=== PATIENT | male | born 2000 | race Hispanic/Latino ===

== ENCOUNTER 2023-11-25 19:16 | Inpatient (IN) | payer BC ==
[2023-11-25 20:02] LABS: #Basophils 0.1 10x3/uL (0.0-0.2); #Eosinphils 0.1 10x3/uL (0.0-0.5); #Neutrophils 7.2 10x3/uL (1.5-8.4); %Basophils 0.5 % (0.0-2.0); %Eosinophils 0.9 % (0.0-6.0); %Lymphocytes 16.7 % (18.0-47.0); %Neutrophils 71.6 % (40.0-75.0); Hemoglobin 16.8 g/dL (13.5-17.5); Mean Corpuscular HGB CONC 34.3 g/dL (32.0-36.0); Mean Corpuscular Hemoglobin 29.1 pg (27.0-33.0); Mean Corpuscular Volume 84.8 fl (81.2-95.1); Mean Platelet Volume 9.6 fl (7.4-10.4); Platelet Count 355 10x3/uL (150-450); RBC Distribution Width 12.4 % (11.5-14.5); Red Blood Cell (RBC) Count 5.78 10x6/uL (4.32-5.72)
[2023-11-25] MEDS ORDERED: Ondansetron PF 4 MG/2 ML Vial ONE (20:02)
[2023-11-25 20:13] LABS: Phosphorus 3.4 mg/dL (2.3-4.7)
[2023-11-25 20:15] LABS: ALT (SGPT) 291 U/L (8-55); AST (SGOT) 124 U/L (5-34); Albumin 4.8 g/dL (3.5-5.0); Alkaline Phosphatase 166 U/L (40-110); Anion Gap 20 mmol/L (10-20); BUN (Urea Nitrogen) 17 mg/dL (8.9-20.6); Calc. Creatinine Clearance 0 mL/min (70-130); Calcium 9.3 mg/dL (7.8-10.44); Carbon Dioxide 14 mmol/L (22-29); Chloride 97 mmol/L (98-107); Estimated GFR 78; Globulin 3.7 g/dL (2.4-3.5); Lipase 15 U/L (8-78); Magnesium 1.9 mg/dL (1.6-2.6); Potassium 4.3 mmol/L (3.5-5.1); Protein, Total 8.5 g/dL (6.0-8.3); Sodium 127 mmol/L (136-145)
[2023-11-25 20:17] LABS: Glucose 514 mg/dL (70-105)
[2023-11-25] MEDS ORDERED: Insulin Regular 300 UNITS/3 ML VIAL ONE (21:14)
[2023-11-25] MEDS ORDERED: INSULIN REGULAR IN 0.9 % NACL 100 UNITS/100 ML BAG ONE (21:14)
[2023-11-25 21:16] LABS: Actual Bicarbonate (HCO3v) 16.3 mEq/L (22-28); Analyzer IN Cardio CS ER; Base Excess -10.5 mEq/L (-2 - +2); Calcium, Ionized (venous) 1.21 mmol/L (1.16-1.32); Chloride (VBG) 95 mmol/L (98-106); Critical Notified By: CP.PH; Hematocrit-VBG 53 % (42.0-52.0); Hemoglobin (Hb) 18.1 g/dL (13.2-17.3); Potassium (VBG) 4.16 mmol/L (3.70-5.30); Puncture Site Other Site; Sodium 134 mmol/L (133-146); pH (venous) 7.233 (7.32-7.43)
[2023-11-25] MEDS ORDERED: NS 0.9% w/ 20 MEQ KCL 0 ML ONE (21:46)
[2023-11-25] MEDS ORDERED: NS 0.9% w/ 20 MEQ KCL 1,000 ML ONE (21:48)
[2023-11-25] MEDS ORDERED: Senokot S 8.6-50 MG TAB PO PRN (22:00)
[2023-11-25] MEDS ORDERED: Dextrose 50% Abboject 50 ML SYRINGE SLOW IVP PRN (22:00)
[2023-11-25] MEDS ORDERED: Ondansetron PF 4 MG/2 ML Vial IVP PRN (22:00)
[2023-11-25] MEDS ORDERED: Calcium Carbonate 500 MG ChewTAB PO PRN (22:00)
[2023-11-25] MEDS ORDERED: Electrolyte Replacement Protocol IVPB SCH (22:00)
[2023-11-25 22:10] LABS: Bilirubin Neg (Negative); Blood, Urine 25 (Negative); Clarity Clear (Clear); Glucose, Urine (Dipstick) >=1000 mg/dL (Negative); Ketone, Urine 150 mg/dL (Negative); Leukocyte Negative (Negative); Nitrite Negative (Negative); Protein, Urine (Dipstick) 15 mg/dl (Neg-Trace); Specific Gravity, Urine 1.025 (1.005-1.030); Urobilinogen Normal mg/dL (Less than 2)
[2023-11-25] MEDS ORDERED: Dextrose 5 %-0.45 % NaCl 1,000 ML IV SCH (22:15)
[2023-11-25 22:22] LABS: Bacteria/HPF None Seen HPF (None Seen); CAUTI Indications for Culture Pelvic or flank pain; RBC/HPF 0-3 HPF (0-3); Squamous Epithelial 0-3 HPF (0-3); Urine Culture Reflex No No; WBC/HPF None Seen HPF (0-3)
[2023-11-26] MEDS ORDERED: Dextrose 5% in Water 1,000 ML IV PRN ×2 (00:30→05:40)
[2023-11-26] MEDS ORDERED: Glucagon 1 MG/ML KIT IM PRN ×2 (00:30→05:40)
[2023-11-26] MEDS ORDERED: Dextrose 5 %-0.45 % NaCl 1,000 ML IV PRN (00:30)
[2023-11-26] MEDS ORDERED: Dextrose 50% Abboject 50 ML SYRINGE SLOW IVP PRN ×2 (00:30→05:40)
[2023-11-26] MEDS ORDERED: NS 0.9% w/ 20 MEQ KCL 1,000 ML/1,000 ML BAG IV PRN ×2 (00:30)
[2023-11-26] MEDS ORDERED: Sodium Chloride 0.9% 1,000 ML IV PRN ×4 (00:30)
[2023-11-26] MEDS ORDERED: D5 1/2 NS w/20 mEq KCL 1,000 ML IV PRN (00:30)
[2023-11-26] MEDS: INSULIN REGULAR IN 0.9 % NACL 100 UNITS in Premix 1 BAG IVPB SCH (00:40)
[2023-11-26] MEDS: Magnesium 2 GM/50 ML(in water) 2 GM in Premix 1 BAG IVPB SCH (00:41)
[2023-11-26] MEDS: Potassium Chloride 20 MEQ in Lactated Ringer's 1,000 ML IV SCH ×2 (01:35→06:23)
[2023-11-26 02:49] LABS: Anion Gap 15 mmol/L (10-20); BUN (Urea Nitrogen) 13 mg/dL (8.9-20.6); Calc. Creatinine Clearance 199 mL/min (70-130); Calcium 8.7 mg/dL (7.8-10.44); Carbon Dioxide 18 mmol/L (22-29); Cardiac Risk 7.9 (Less than 4.5); Chloride 103 mmol/L (98-107); Estimated GFR 111; Glucose 285 mg/dL (70-105); Magnesium 2.1 mg/dL (1.6-2.6); Phosphorus 2.5 mg/dL (2.3-4.7); Potassium 3.4 mmol/L (3.5-5.1); Sodium 133 mmol/L (136-145)
[2023-11-26] MEDS: Potassium Chloride 20 MEQ TAB PO SCH ×2 (04:15→06:17)
[2023-11-26] MEDS: Acetaminophen 325 MG TAB PO PRN (04:52)
[2023-11-26 05:34] LABS: Magnesium 2.1 mg/dL (1.6-2.6); Phosphorus 2.8 mg/dL (2.3-4.7)
[2023-11-26 05:35] LABS: ALT (SGPT) 200 U/L (8-55); AST (SGOT) 64 U/L (5-34); Alkaline Phosphatase 135 U/L (40-110); Anion Gap 13 mmol/L (10-20); BUN (Urea Nitrogen) 13 mg/dL (8.9-20.6); Bilirubin, Total 0.6 mg/dL (0.2-1.2); Calc. Creatinine Clearance 205 mL/min (70-130); Calcium 8.8 mg/dL (7.8-10.44); Carbon Dioxide 21 mmol/L (22-29); Chloride 105 mmol/L (98-107); Estimated GFR 115; Globulin 3.3 g/dL (2.4-3.5); Glucose 169 mg/dL (70-105); Potassium 3.4 mmol/L (3.5-5.1); Protein, Total 7.3 g/dL (6.0-8.3); Sodium 136 mmol/L (136-145)
[2023-11-26] MEDS: Lantus 1000 UNITS/10 ML VIAL SC SCH ×2 (06:17→21:12)
[2023-11-26] MEDS: Enoxaparin 40 MG (0.4 mL) SYRINGE SC SCH (08:49)
[2023-11-26] MEDS: Famotidine 20 MG TAB PO SCH (08:49)
[2023-11-26] MEDS: Folic Acid 1 MG TAB PO SCH (08:49)
[2023-11-26] MEDS: Thiamine 100 MG TAB PO SCH (08:49)
[2023-11-26] MEDS: HumaLOG 300 UNITS/3 ML VIAL SC PRN ×2 (12:00→16:29)
[2023-11-26 12:29] LABS: Anion Gap 16 mmol/L (10-20); BUN (Urea Nitrogen) 13 mg/dL (8.9-20.6); Calc. Creatinine Clearance 174 mL/min (70-130); Calcium 8.9 mg/dL (7.8-10.44); Carbon Dioxide 21 mmol/L (22-29); Chloride 104 mmol/L (98-107); Estimated GFR 94; Glucose 314 mg/dL (70-105); Potassium 4.6 mmol/L (3.5-5.1); Sodium 136 mmol/L (136-145)
[2023-11-26 13:15] LABS: Hemoglobin A1c 9.5 % (4.0-6.0)
[2023-11-26 13:17] LABS: HBCM Index 0.07 S/CO (0-0.79); HBSAg Index 0.29 S/CO (0-0.99); Hep A IgM AB Non-Reactive (NonReactive); Hep A IgM S/CO 0.15 S/CO (0-0.79); Hep B Surf Ag Non-Reactive S/CO (NonReactive); Hep C IgG Ab Non-Reactive S/CO (NonReactive); Hep C Index 0.11 S/CO (0-0.79); Hepatitis B Core IgM Abs Non-Reactive S/CO (NonReactive)
[2023-11-26] MEDS: Potassium Chloride 20 MEQ in Premix 1 BAG IVPB SCH (14:40)
[2023-11-27 04:02] LABS: Anion Gap 15 mmol/L (10-20); BUN (Urea Nitrogen) 11 mg/dL (8.9-20.6); Calc. Creatinine Clearance 224 mL/min (70-130); Calcium 9.8 mg/dL (7.8-10.44); Carbon Dioxide 22 mmol/L (22-29); Chloride 101 mmol/L (98-107); Estimated GFR 124; Glucose 238 mg/dL (70-105); Potassium 3.6 mmol/L (3.5-5.1); Sodium 134 mmol/L (136-145)
[2023-11-27 05:17] VITALS: BMI 35.4
[2023-11-27] MEDS: Lantus 1000 UNITS/10 ML VIAL SC SCH (22:03)
[2023-11-28] MEDS: metFORMIN 500 MG TAB PO SCH ×2 (09:22→15:56)
[2023-11-28] MEDS: Lisinopril 2.5 MG TAB PO SCH (10:17)
[2023-11-28] MEDS: Insulin Regular 300 UNITS/3 ML VIAL SC PRN (16:07)
[2023-11-28 16:27] VITALS: BP 140/76; TEMP 98.1
[2023-11-28] MEDS ORDERED: Lantus 1000 UNITS/10 ML VIAL SC SCH ×2 (21:00)
[2023-11-29] MEDS ORDERED: Lisinopril 2.5 MG TAB PO SCH (09:00)
== END 2023-11-28 17:19 | disposition home or self-care (01) | DRG 638 ==
LOC: CSHERS 19:16 → CSHICU 22:11 → CSHTELE 11-27 00:34
PROVIDERS: ADMIT Student in an Organized Health Care Education/Training Program; ATTEND Internal Medicine
DX: E11.10 Type 2 diabetes mellitus with ketoacidosis without coma (principal); N17.9 Acute kidney failure, unspecified; K76.0 Fatty (change of) liver, not elsewhere classified; E86.0 Dehydration; E11.65 Type 2 diabetes mellitus with hyperglycemia; E66.01 Morbid (severe) obesity due to excess calories; F10.10 Alcohol abuse, uncomplicated; Z68.35 Body mass index [BMI] 35.0-35.9, adult; Z83.3 Family history of diabetes mellitus
CPT/HCPCS: 36415; 36416; 76705; 80048; 80053; 80061; 80074; 81001; 82010; 82805; 83036; 83605; 83690; 83735; 84100; 84681; 85025; 93005; 96374; 96375; J1650; J1815; J2405; J3475; J3480; J7120

== ENCOUNTER 2025-06-07 08:22 | Emergency (ER) | payer BC ==
[2025-06-07] MEDS ORDERED: Ondansetron PF 4 MG/2 ML Vial ONE (09:10)
[2025-06-07] MEDS ORDERED: Ketorolac Tromethamine 30 MG (1 mL) VIAL ONE (09:11)
[2025-06-07 09:19] LABS: #Basophils 0.06 10x3/uL (0.0-0.2); #Eosinophils 0.28 10x3/uL (0.0-0.5); #Monocytes 0.76 10x3/uL (0.0-1.1); #Neutrophils 6.11 10x3/uL (1.5-8.4); %Basophils 0.6 % (0.0-2.0); %Eosinophils 2.8 % (0.0-6.0); %Lymphocytes 27.0 % (18.0-47.0); %Monocytes 7.7 % (0.0-10.0); %Neutrophils 61.6 % (40.0-75.0); Hematocrit 47.1 % (38.8-50.0); Hemoglobin 15.3 g/dL (13.5-17.5); Mean Corpuscular Hemoglobin 29.4 pg (27.0-33.0); Mean Corpuscular Volume 90.4 fL (81.2-95.1); Platelet Count 341 10x3/uL (150-450); Red Blood Cell (RBC) Count 5.21 10x6/uL (4.32-5.72); White Blood Cell (WBC) Count 9.92 10x3/uL (3.5-10.5)
[2025-06-07 09:35] LABS: ALT (SGPT) 47 U/L (Less than 45); AST (SGOT) 64 U/L (11-34); Albumin 4.5 g/dL (3.1-4.5); Alkaline Phosphatase 83 U/L (40-110); Anion Gap 12 mmol/L (10-20); BUN (Urea Nitrogen) 19 mg/dL (8.9-20.6); Bilirubin, Total 0.4 mg/dL (0.3-1.2); Calc. Creatinine Clearance 0 mL/min (70-130); Calcium 9.3 mg/dL (7.8-10.44); Carbon Dioxide 27 mmol/L (22-29); Chloride 106 mmol/L (98-107); Globulin 3.5 g/dL (2.4-3.5); Glucose 126 mg/dL (70-105); Lipase 22 U/L (8-78); Potassium 4.3 mmol/L (3.5-5.1); Sodium 141 mmol/L (136-145)
[2025-06-07 10:31] LABS: Glucose, Urine (Dipstick) Normal (Negative); Leukocyte Negative (Negative); Protein, Urine (Dipstick) 30 mg/dl (Neg-Trace); Specific Gravity, Urine 1.015 (1.005-1.030)
[2025-06-07 11:15] LABS: RBC/HPF 0-3 HPF (0-3)
[2025-06-07 11:16] LABS: Bacteria/HPF Rare-Few HPF (None Seen); CAUTI Indications for Culture Pelvic or flank pain; WBC/HPF 0-3 HPF (0-3)
[2025-06-07 11:17] LABS: Urine Culture Reflex No No
== END 2025-06-07 12:46 | disposition home or self-care (01) ==
LOC: CSHERS 08:22
DX: R10.13 Epigastric pain (principal)
CPT/HCPCS: 74177; 76705; 80053; 81001; 83605; 83690; 85025; 96374; 96375; J1885; J2405